=== PATIENT | male | born 1970 | race Caucasian/White ===

== ENCOUNTER 2016-06-12 08:31 | Day surgery (SDC) | payer MEDICAID ==
[~2016-06-12 08:31] MED LIST: RINGERS SOLUTION,LACTATED 1,000 ML IV PRN; ceFAZolin SODIUM 1 GM VIAL IV PRN
[2016-06-12] MEDS ORDERED: BUPIVACAINE HCL/EPINEPHRINE 50 ML VIAL IJ ONE (11:25)
[2016-06-12 12:42] VITALS: BP 139/85
--- NOTE | 2016-06-12 16:50 | OR ---
Operative Report - Dictated Report Narrative: Date: 06/12/2016 Physician: Ghanshyam Ann M.D. Medical Information Specialist: Adam Parra PA-C Preoperative diagnosis: Right distal arm soft tissue mass Postoperative diagnosis: Right distal arm soft tissue mass Procedure: Excision of right arm soft tissue mass Anesthesia: General Plus local Complications: None Estimated blood loss: Minimal Tourniquet time: 8 Minutes at 250 mmHg Specimens: Fatty soft tissue mass consistent in appearance with a lipoma Retained implants: None Drains: None Indications: Sesar Is a 45 year-old male who has been followed in my clinic with complaints of a slowly enlarging soft tissue mass of the volar aspect of the distal arm just proximal to the elbow crease. Physical exam as well as diagnostic imaging showed an approximately 5 x 3 x 2 cm fatty mass consistent with a lipoma. The mass had become symptomatic for the patient and I counseled him that its size of 5 cm was an indication for excision. The risks, benefits, and alternatives were discussed in clinic. The risks being bleeding, infection , nerve, tendon, blood vessel injury, persistent pain, wound complications, need for additional procedures, and recurrence. Consent was obtained in the clinic. Procedure: After marking the correct extremity in the preoperative holding area, a timeout was performed in the operating room. IV antibiotics consisting of 2 g of Ancef were administered prior to the procedure. The patient was placed supine on the operating table with a large arm board. General anesthetic was then induced by the anesthesia provider without complication. The right upper extremity was then prepped and draped in the usual sterile fashion. A sterile tourniquet was applied to the operative upper arm. The arm was exsanguinated and the tourniquet was inflated to 250 mmHg. 0.5% Marcaine without epinephrine was infused into the projected incision site over the soft tissue mass. An approximately 4 cm longitudinal incision was made directly over the mass. On dissection with tenotomy scissors was carried down through subcutaneous fat and immediately the fatty tumor was encountered. We carefully dissected circumferentially around the mass while delivering it out of the wound. Blunt dissection with scissors was carried down all the way to the base of the mass until the entirety of the mass was removed and all that was left in the wound bed was normal-appearing fatty tissue. The mass was sent to pathology for permanent section as well as MDM2 staining to confirm a diagnosis of benign lipoma. The tourniquet was then let down and hemostasis was obtained using pressure and electrocautery. Once adequate hemostasis was obtained, additional local anesthetic was placed in the skin edges, and the subcutaneous tissue was closed with interrupted Vicryl. The skin was closed with 4-0 nylon and sterile dressings consisting of Xeroform, 4 x 4, soft roll, and an Luis Antonio wrap was applied. All sponge, needle, blade, and instrument counts were correct prior to closing the wounds. The patient was awoken and transferred to the postanesthesia care unit in stable condition.
== END 2016-06-12 08:32 | disposition home or self-care (01) ==
LOC: AMB 08:31
PROVIDERS: ATTEND Orthopaedic Surgery
PROC: 0XB Anatomical Regions, Upper Extremities, Excision (ICD-10-PCS; principal; 2016-06-12 09:00)
DX: D17.21 Benign lipomatous neoplasm of skin and subcutaneous tissue of right arm (principal); E78.5 Hyperlipidemia, unspecified; E03.9 Hypothyroidism, unspecified; F17.200 Nicotine dependence, unspecified, uncomplicated; Z68.34 Body mass index [BMI] 34.0-34.9, adult